=== PATIENT | male | born 1985 | race Caucasian/White ===

== ENCOUNTER 2022-07-18 19:48 | Emergency (ER) | payer OTHER ==
[2022-07-18 20:05] VITALS: BP 141/80; PULSE 93; RESP 18; TEMP 98.1; BMI 29.8
[2022-07-18] MEDS ORDERED: FAMOTIDINE 20 MG/50 ML IVPB 20 MG/50 ML MG IVPB ONE ×2 (20:34→21:19)
[2022-07-18] MEDS ORDERED: MAG HYDROX/AL HYDROX/SIMETH 30 ML UNIT-DOSE CUP PO ONE (20:34)
[2022-07-18] MEDS ORDERED: MAG HYDROX/AL HYDROX/SIMETH 30 ML UNIT-DOSE CUP ONE (21:19)
[2022-07-18 22:35] LABS: BASO % 0.4 % (0-2.0); EOS % 1.8 % (0-4.5); HEMOGLOBIN 14.9 GM/dL (11.7-16.9); LYMPH % 24.5 % (8-40); MCH 25.9 pg (25.7-33.7); MCHC 33.1 g/dl (32.0-35.9); MEAN CELL VOLUME 78.3 fl (80-96); MEAN PLT VOLUME 9.1 fl (7.5-11.1); MONO % 5.8 % (3.8-10.2); NEUT % 67.5 % (42.8-82.8); PLATELET COUNT 261 10^3/uL (134-434); RBC 5.75 M/mm3 (4.00-5.60); RDW 13.7 % (11.9-15.9); WHITE BLOOD COUNT 8.1 K/mm3 (4.0-10.0)
[2022-07-18 22:49] LABS: ALBUMIN 4.1 g/dl (3.4-5.0); BLOOD UREA NITROGEN 17.3 mg/dL (7-18); CALCIUM 9.1 mg/dL (8.5-10.1)
[2022-07-18 22:52] LABS: CREATININE 1.4 mg/dL (0.55-1.3)
[2022-07-18 22:54] LABS: BILIRUBIN,TOTAL 0.4 mg/dL (0.2-1); TOT PROT 7.5 g/dl (6.4-8.2)
== END 2022-07-19 00:36 | disposition home or self-care (01) ==
LOC: JER 19:48
PROC: 3E033GC Introduction of Other Therapeutic Substance into Peripheral Vein, Percutaneous Approach (ICD-10-PCS; principal; 2022-07-18)
DX: R00.2 Palpitations (principal)
CPT/HCPCS: 36415; 71045-TC-FY; 80053; 84439; 84443; 84484; 85025; 93005; 93010; 99285-25

== ENCOUNTER 2022-10-30 04:59 | Emergency (ER) | payer OTHER ==
[2022-10-30 05:16] VITALS: BP 124/84; PULSE 67; RESP 20; TEMP 97.6; BMI 28.5
== END 2022-10-30 06:28 | disposition left against medical advice (07) ==
LOC: JER 04:59
DX: R10.12 Left upper quadrant pain (principal); R00.2 Palpitations
CPT/HCPCS: 99281-25

== ENCOUNTER 2023-06-04 05:31 | Day surgery (SDC) | payer OTHER ==
[2023-05-29 10:07] VITALS: BMI 27.1
[2023-06-04 12:20] VITALS: TEMP 97.8
[2023-06-04 13:39] VITALS: BP 116/72; PULSE 78; RESP 18
== END 2023-06-04 12:45 | disposition home or self-care (01) ==
LOC: JASU-ENDO 05:31
PROVIDERS: ATTEND Internal Medicine Gastroenterology
PROC: 0DB78ZX Excision of Stomach, Pylorus, Via Natural or Artificial Opening Endoscopic, Diagnostic (ICD-10-PCS; 2023-06-04)
PROC: 0DB68ZX Excision of Stomach, Via Natural or Artificial Opening Endoscopic, Diagnostic (ICD-10-PCS; principal; 2023-06-04 11:15)
DX: K29.50 Unspecified chronic gastritis without bleeding (principal); B96.81 Helicobacter pylori [H. pylori] as the cause of diseases classified elsewhere